=== PATIENT | female | born 1990 | race Caucasian/White ===

== ENCOUNTER 2016-04-19 23:07 | Emergency (ER) | payer OTHER ==
[2016-04-19 23:53] LABS: SPECIFIC GRAVITY 1.015 (1.001-1.030); URINE BILIRUBIN NEGATIVE (NEGATIVE); URINE BLOOD NEGATIVE (NEGATIVE); URINE GLUCOSE (UA) NEGATIVE (NEGATIVE); URINE LEUKOCYTE ESTERASE NEGATIVE (NEGATIVE); URINE NITRITE NEGATIVE (NEGATIVE); URINE PROTEIN NEGATIVE (NEGATIVE); URINE UROBILINOGEN NORMAL (0-1 mg/dl)
[2016-04-19 23:54] LABS: HCG,QUALITATIVE URINE NEGATIVE
[2016-04-19 23:55] LABS: URINE APPEARANCE CLEAR; URINE COLOR YELLOW
[2016-04-20] MEDS ORDERED: KETOROLAC TROMETHAMINE 30 MG/ML 1 ML VIAL ONE (02:42)
[2016-04-20] MEDS ORDERED: MORPHINE SULFATE 4 MG/ML SYRINGE ONE (04:14)
--- NOTE | 2016-04-20 08:14 | CT ---
CT ABDOMEN AND PELVIS WITHOUT CONTRAST HISTORY: Right-sided flank pain. TECHNIQUE: No intravenous contrast administered; contiguous axial images were acquired from the lung bases to the ischial tuberosities. Oral contrast was not administered. COMPARISON:None. FINDINGS: LUNG BASES: No gross airspace consolidation or pleural effusion. LIVER: No focal mass effect. SPLEEN: No focal mass effect. PANCREAS: No focal mass effect. Subtle stranding of adjacent paraceliac/chris-SMA fat. ADRENAL GLANDS: No mass effect. KIDNEYS: No renal calculi. No collecting system dilatation. GALLBLADDER: Present. BOWEL: Moderate fecal loading. Limited assessment of the distal colon due to decompression. No abnormal small bowel dilatation. APPENDIX: Normal gas-filled appendix. PELVIC ORGANS: There is a right adnexal cyst, 3.7 x 3.5 x 2.5 cm. FREE FLUID: No gross free fluid identified. ABDOMINOPELVIC LYMPH NODES: No abnormally enlarged lymph nodes identified. ABDOMINAL AORTA: Normal caliber. OSSEOUS STRUCTURES: No grossly destructive lesions. Right paracentral protrusion at L5-S1, abutting the right S1 nerve root. IMPRESSION: No evidence of upper urinary tract obstruction or urolithiasis. 3.7 cm right adnexal cyst, consider sonography for further assessment. Subtle fatty stranding along the retroperitoneum/peripancreatic region, early pancreatitis not excluded. Preliminary report relayed to the Emergency Medicine medical service by Dr. Heath on 04/20/2016 at 0221 hours.
--- NOTE | 2016-04-20 08:40 | US ---
PELVIC ULTRASOUND HISTORY: Right lower quadrant pain. Transabdominal and transvaginal pelvic sonography performed. Correlation against CT examination of the same date. TRANSABDOMINAL IMAGING UTERINE DIMENSIONS: 7.9 x 4.5 x 2 point cm. BLADDER: No abnormal filling defect. TRANSVAGINAL IMAGING: ENDOMETRIAL THICKNESS: 1.6 mm. FOCAL UTERINE LESIONS: None. RIGHT OVARY: 4.0 x 3.5 x 3.5 cm in size. LEFT OVARY: 2.5 x 2.7 x 2.0 cm in size. OVARIAN BLOOD FLOW: Documented bilaterally. DOMINANT ADNEXAL LESIONS: 3.7 x 3.3 x 3.1 cm simple right ovarian cyst. 1.7 cm cyst on the left with a small septation. FREE FLUID: None. IMPRESSION: 3.7 cm simple right ovarian cyst, almost certainly benign. No evidence of associated torsion. Nondominant 1.7 cm cyst of the left ovary, likely physiologic. No intravenous or free fluid. Preliminary report relayed to the Emergency Medicine medical service by Dr. Vargas on 04/20/2016 at 0550 hours.
== END 2016-04-20 05:23 | disposition home or self-care (01) ==
LOC: ED 23:07
DX: N83.201 Unspecified ovarian cyst, right side (principal); J45.909 Unspecified asthma, uncomplicated; F17.210 Nicotine dependence, cigarettes, uncomplicated
CPT/HCPCS: 81025; 81003; 74176; 76856; 76830; 99283 ×2; 96372; 96374; J2270; J1885

== ENCOUNTER 2016-06-05 21:33 | Emergency (ER) | payer OTHER ==
[2016-06-05 22:51] LABS: HCG,QUALITATIVE URINE NEGATIVE
[2016-06-05 22:52] LABS: SPECIFIC GRAVITY 1.015 (1.001-1.030); URINE APPEARANCE SL CLOUDY; URINE BILIRUBIN NEGATIVE (NEGATIVE); URINE BLOOD NEGATIVE (NEGATIVE); URINE COLOR YELLOW; URINE GLUCOSE (UA) NEGATIVE (NEGATIVE); URINE LEUKOCYTE ESTERASE TRACE (NEGATIVE); URINE NITRITE NEGATIVE (NEGATIVE); URINE PROTEIN NEGATIVE (NEGATIVE); URINE UROBILINOGEN NORMAL (0-1 mg/dl)
[2016-06-05 23:09] LABS: URINE RBC 0 /hpf
[2016-06-05 23:10] LABS: URINE BACTERIA RARE; URINE EPITHELIAL CELLS 0-2 /hpf
[2016-06-06] MEDS ORDERED: CEPHALEXIN 500 MG CAPSULE ONE (00:32)
[2016-06-06] MEDS ORDERED: PHENAZOPYRIDINE HCL 200 MG TABLET ONE (00:32)
== END 2016-06-06 00:40 | disposition home or self-care (01) ==
LOC: ED 21:33
DX: N39.0 Urinary tract infection, site not specified (principal); J45.909 Unspecified asthma, uncomplicated; F17.210 Nicotine dependence, cigarettes, uncomplicated
CPT/HCPCS: 81025; 87086; 81001; 99283 ×2; A9270 ×2